=== PATIENT | female | born 1990 | race Caucasian/White ===

== ENCOUNTER 2017-02-14 14:54 | Emergency (ER) | payer MEDICAID ==
[2017-02-14 15:01] VITALS: BP 167/91; PULSE 83; O2SAT 100
--- NOTE | 2017-02-14 15:13 | ERPHSYRPT ---
- History of Present Illness Time Seen by Provider: 02/14/17 15:02 Source: patient Exam Limitations: no limitations Patient Subjective Stated Complaint: TOOTHACHE SINCE YESTERDAY Triage Nursing Assessment: AMBULATED TO ROOM PER SELF. SKIN W/D, COLOR NORMAL. HOLDING LEFT SIDE OF FACE, CRYING. HAS APPT WITH DENTIST IN [place] ON FRIDAY BUT STATES PAIN IS TOO BAD AND SHE CAN'T WAIT. Physician History: 26-year-old white female arrives with complaint of left maxillary dental pain symptoms going on since 2 weeks worse past several days. Patient states she thinks she has a wisdom tooth which is causing her pain. She states she has contacted her dentist today she has an appointment for Friday. Patient has no fevers no vomiting no other complaints. Past medical history is remarkable for asthma, conductivity heart defect. . Past surgical history negative Timing/Duration: week(s) (symptoms for 2 weeks worse the past 2 days) Severity: moderate Modifying Factors: Improves With: acetaminophen Associated Symptoms: No nausea, No vomiting, No abdominal pain, No shortness of breath, No heartburn, No diaphoresis, No cough, No chills, No chest pain, No fever, No headaches, No loss of appetite, No malaise, No rash, No syncope, No seizure, No weakness Allergies/Adverse Reactions: morphine Allergy (Severe, Verified 02/14/17 14:59) Hives naproxen Allergy (Mild, Verified 02/14/17 14:59) Hives codeine [Codeine] Allergy (Verified 02/14/17 14:59) Swelling loratadine [From Claritin] Allergy (Verified 02/14/17 14:59) Hx Tetanus, Diphtheria Vaccination/Date Given: No Hx Influenza Vaccination/Date Given: No Hx Pneumococcal Vaccination/Date Given: No - Review of Systems Constitutional: No Fever, No Chills Eyes: No Symptoms Ears, Nose, & Throat: Mouth Pain (pain left maxillary molar area), No Ear Pain, No Ear Discharge, No Hearing Changes, No Tinnitus, No Nose Pain, No Nose Congestion, No Nose Discharge, No Mouth Swelling, No Loose Teeth, No Throat Pain , No Throat Swelling, No Hoarse, No Painful Swallowing, No Snoring, No Stridor Respiratory: No Cough, No Dyspnea Cardiac: No Chest Pain, No Edema, No Syncope Abdominal/Gastrointestinal: No Abdominal Pain, No Nausea, No Vomiting, No Diarrhea Genitourinary Symptoms: No Dysuria Musculoskeletal: No Back Pain, No Neck Pain Skin: No Rash Neurological: No Dizziness, No Focal Weakness, No Sensory Changes Psychological: No Symptoms Endocrine: No Symptoms All Other Systems: Reviewed and Negative - Past Medical History Pertinent Past Medical History: Yes Neurological History: No Pertinent History ENT History: No Pertinent History Cardiac History: Other Respiratory History: Asthma Endocrine Medical History: No Pertinent History Musculoskeletal History: No Pertinent History GI Medical History: No Pertinent History History: No Pertinent History Psycho-Social History: No Pertinent History Female Reproductive Disorders: No Pertinent History Other Medical History: conductivity deficit of the heart? - Past Surgical History Past Surgical History: No Neuro Surgical History: No Pertinent History Cardiac: No Pertinent History Respiratory: No Pertinent History Gastrointestinal: No Pertinent History Genitourinary: No Pertinent History Musculoskeletal: No Pertinent History Female Surgical History: No Pertinent History - Social History Smoking Status: Never smoker Exposure to second hand smoke: Yes Drug Use: none Patient Lives Alone: No - Female History Hx Last Menstrual Period: 01/28/17 Hx Now: No - Nursing Vital Signs Nursing Vital Signs: Initial Vital Signs Temperature 98 F Temperature Source Oral Pulse Rate 83 Respiratory Rate 20 Blood Pressure [Right Arm] 167/91 Pain Intensity 10 - Physical Exam General Appearance: moderate distress Eye Exam: PERRL/EOMI, eyes nml inspection Ears, Nose, Throat Exam: normal ENT inspection, TMs normal, pharynx normal, moist mucous membranes, other (no obvious dental caries or abscessvital tender with palpation in th laterale left macillary region lateral to molar) Neck Exam: normal inspection, non-tender, supple, full range of motion Respiratory Exam: normal breath sounds, lungs clear, No respiratory distress Cardiovascular Exam: regular rate/rhythm, normal heart sounds, normal peripheral pulses Gastrointestinal/Abdomen Exam: soft, normal bowel sounds, No tenderness, No mass Back Exam: normal inspection, normal range of motion, No CVA tenderness, No vertebral tenderness Extremity Exam: normal inspection, normal range of motion, pelvis stable Neurologic Exam: alert, oriented x 3, cooperative, normal mood/affect, nml cerebellar function, nml station & gait, sensation nml, No motor deficits Skin Exam: normal color, warm, dry, No rash Lymphatic Exam: No adenopathy SpO2 Interpretation: normal (100%) SpO2: 100 Oxygen Delivery: Room Air - Course Nursing assessment & vital signs reviewed: Yes - Progress Progress: improved Progress Note: 02/14/17 15:11 This is a 26-year-old white female she arrives with complaint of dental pain left the maxillary region symptoms for 2 weeks she states has been worse for the past 2 days. Patient states she has contacted a dentist and has arranged for an appointment on Friday. She states she is unable to get into the dentist sooner Patient believes she might have a problem with a wisdom tooth. Patient does have a listed allergy to morphine Naprosyn, codeine and Lortadine Will go ahead and place patient on Hope for pain amoxicillin Patient is to place cold packs externally to area 24-48 hours to follow-up with her dentist Friday. On physical examination patient is tender on the left maxillary area adjacent to the left molar 02/14/17 15:17 Patient denies drug or alcohol use. Patient states she chewed tobacco in the past. Patient states she is not getting any pain medications from any other providers. Inspect is reviewed and no narcotics are evident on inspect report. - Departure Time of Disposition: 15:13 Departure Disposition: Home Clinical Impression: Pain, dental Condition: Good Critical Care Time: No Referrals: ANT AG [Primary Care Provider] - Additional Instructions: Return home. Cold packs to area 24-48 hours (externallly only) Avoid excessively hot or cold foods. Hope 5/325 #12 one orally every 4-6 hours as needed for pain. Amoxicillin 500 mg orally 3 times a day for 10 days. Follow-up with your dentist. Return for acute distress or for severe symptoms. Prescriptions: Amoxicillin 500 mg PO TID #30 capsule Hydrocodone/Acetaminophen [Hope 5-325 Tablet] 1 tab PO Q4-6HPRN PRN #12 tablet PRN Reason: Pain
== END 2017-02-14 15:29 | disposition home or self-care (01) ==
LOC: ED 14:54
DX: K08.89 Other specified disorders of teeth and supporting structures (principal)
CPT/HCPCS: 99281

== ENCOUNTER 2019-09-17 21:41 | Emergency (ER) | payer MEDICAID ==
[2019-09-17] MEDS ORDERED: ROCEPHIN 1 Gm-D5w 50 ml Bag** 1 G/50 ML IVPB IV STA (21:52)
[2019-09-17] MEDS ORDERED: Sodium Chloride 0.9% 1000 ML 1,000 ML IV STA (21:52)
[2019-09-17] MEDS ORDERED: Zithromax 500 MG/ 250 ML NaCl Premix 500 MG/250 ML IVPB IV STA (21:52)
[2019-09-17] MEDS ORDERED: DUONEB 0.5-3 MG/3 ml Neb IH ONE ×2 (21:52→22:03)
[2019-09-17] MEDS ORDERED: solu-MEDROL 125 MG IV ONE (21:52)
--- NOTE | 2019-09-17 22:01 | ERPHSYRPT ---
- History of Present Illness Time Seen by Provider: 09/17/19 21:56 Source: patient, family Exam Limitations: no limitations Patient Subjective Stated Complaint: pt to ER with complaints of chest pain and dizziness x 2 days. dizziness is worse today. diagnosed with pneumonia yesterday Triage Nursing Assessment: pt to ER with dizziness and chest pain with breathing. pt told she had pneumonia 2 days ago. Physician History: pt is 28 year old with diag viral pneumonia a few days ago but dizziness and malaise and short of breath ; no hx recent surg or hosp; no prior hx DVT diagnosis however had unexplained / unevaluated left LE swelling after pregancy last year no prior PE; no hormonal tx ; not tachy - but with concerning hx cannot PERC out for DVT risk; symptoms are suspicious and the WBC is normal and no reported fever and minimal cough - so will check D Dimer . did vomit; no abd pain Timing/Duration: day(s) Cough Quality/Degree: dry cough Possible Cause: no prior episodes Modifying Factors: Improves With: deep breath Associated Symptoms: cough, dizziness, lightheadedness Allergies/Adverse Reactions: morphine Allergy (Severe, Verified 09/17/19 21:56) Hives naproxen Allergy (Mild, Verified 09/17/19 21:56) Hives codeine [Codeine] Allergy (Verified 09/17/19 21:56) Swelling loratadine [From Claritin] Allergy (Verified 09/17/19 21:56) Hx Tetanus, Diphtheria Vaccination/Date Given: Yes Hx Influenza Vaccination/Date Given: No Hx Pneumococcal Vaccination/Date Given: No Immunizations Up to Date: Yes - Review of Systems Constitutional: Malaise, Weakness, No Fever, No Chills Eyes: No Symptoms Ears, Nose, & Throat: No Symptoms Respiratory: Cough, No Dyspnea Cardiac: Chest Pain, No Edema, No Syncope Abdominal/Gastrointestinal: Nausea, Vomiting, No Abdominal Pain, No Diarrhea Genitourinary Symptoms: No Dysuria Musculoskeletal: No Back Pain, No Neck Pain Skin: No Rash Neurological: Dizziness, No Focal Weakness, No Sensory Changes Psychological: No Symptoms Endocrine: No Symptoms Hematologic/Lymphatic: No Symptoms Immunological/Allergic: No Symptoms All Other Systems: Reviewed and Negative - Past Medical History Pertinent Past Medical History: No Neurological History: No Pertinent History ENT History: No Pertinent History Cardiac History: Other Respiratory History: Asthma Endocrine Medical History: No Pertinent History Musculoskeletal History: No Pertinent History GI Medical History: No Pertinent History History: No Pertinent History Psycho-Social History: No Pertinent History Female Reproductive Disorders: No Pertinent History Other Medical History: conductivity deficit of the heart? - Past Surgical History Past Surgical History: No Neuro Surgical History: No Pertinent History Cardiac: No Pertinent History Respiratory: No Pertinent History Gastrointestinal: No Pertinent History Genitourinary: No Pertinent History Musculoskeletal: No Pertinent History Female Surgical History: No Pertinent History - Social History Smoking Status: Never smoker Exposure to second hand smoke: Yes Drug Use: none Patient Lives Alone: No - Female History Hx Last Menstrual Period: 09/10/2019 Hx Now: No (having HCG) - Nursing Vital Signs Nursing Vital Signs: Initial Vital Signs Temperature 97.8 F 09/17/19 21:42 Pulse Rate 82 09/17/19 21:42 Respiratory Rate 18 09/17/19 21:42 Blood Pressure 118/73 09/17/19 21:42 O2 Sat by Pulse Oximetry 100 09/17/19 21:42 Pain Scale Pain Intensity 0 - Physical Exam General Appearance: no apparent distress, alert Eye Exam: PERRL/EOMI, eyes nml inspection Ears, Nose, Throat Exam: normal ENT inspection, TMs normal, pharynx normal, moist mucous membranes Neck Exam: normal inspection, non-tender, supple, full range of motion Respiratory Exam: normal breath sounds, lungs clear, airway intact, No respiratory distress Cardiovascular Exam: regular rate/rhythm, normal heart sounds Gastrointestinal/Abdomen Exam: soft, No tenderness Pelvic Exam: deferred Rectal Exam: deferred Back Exam: normal inspection, No CVA tenderness, No vertebral tenderness Extremity Exam: normal inspection, normal range of motion Neurologic Exam: alert, oriented x 3, cooperative, normal mood/affect, sensation nml, No motor deficits Skin Exam: normal color, warm, dry, No rash Lymphatic Exam: No adenopathy SpO2 Interpretation: normal SpO2: 100 O2 Delivery: Room Air - Course Nursing assessment & vital signs reviewed: Yes EKG Interpreted by Me: Sinus Rhythm, NORMAL AXIS, Non-specific ST Changes Ordered Tests: Active Orders 24 hr Category Date Time Status Suction Worker STAT Care 09/17/19 21:53 Active EKG-ER Only STAT Care 09/17/19 21:52 Active IV Insertion STAT Care 09/17/19 21:52 Active Pulse Oximetry (ED) STAT Care 09/17/19 21:52 Active CHEST 2 VIEWS (PA AND LAT) Stat Exams 09/17/19 21:52 Taken CHEST WITH CONTRAST [CT] Stat Exams 09/17/19 22:54 Ordered CBC W DIFF Stat Lab 09/17/19 21:55 Completed CMP Stat Lab 09/17/19 21:55 Completed D-DIMER QUANTITATION Stat Lab 09/17/19 21:55 Completed HCG QUALITATIVE,SERUM Stat Lab 09/17/19 21:55 Completed Lactic Acid Stat Lab 09/17/19 22:23 Completed TROPONIN Q3H Lab 09/17/19 21:55 Completed UA W/RFX UR CULTURE Stat Lab 09/17/19 22:35 Completed Peak Expiratory Flow Rate ONCE RT 09/17/19 21:52 Completed Respiratory Therapy Assessment DAILY RT 09/17/19 22:05 Completed Medication Summary Discontinued Medications Generic Name Dose Route Start Last Admin Trade Name Freq PRN Reason Stop Dose Admin Albuterol/Ipratropium 3 ml 09/17/19 21:52 09/17/19 22:07 Duoneb 0.5-3 Mg/3 Ml Neb IH 09/17/19 21:53 3 ml STAT ONE Administration Albuterol/Ipratropium Confirm 09/17/19 22:03 Duoneb 0.5-3 Mg/3 Ml Neb Administered 09/17/19 22:04 Dose 3 ml IH .STK-MED ONE Ceftriaxone Sodium/Dextrose 1 g in 50 mls @ 100 mls/hr 09/17/19 21:52 22:38 Rocephin 1 Gm-D5w 50 Ml Bag IV 09/17/19 22:21 Infused STAT STA Infusion Sodium Chloride 1,000 mls @ 999 mls/hr 09/17/19 21:52 09/17/19 22:13 Sodium Chloride 0.9% 1000 Ml IV 09/17/19 22:52 999 mls/hr .Q1H1M STA Administration Azithromycin 500 mg in 250 mls @ 250 mls/hr 09/17/19 21:52 09/17/19 22:21 Zithromax 500 Mg/ 250 Ml Nacl Premix IV 09/17/19 22:51 250 ml/hr STAT STA 250 mls/hr Administration Azithromycin Confirm 09/17/19 22:04 Zithromax 500 Mg/ 250 Ml Nacl Premix Administered 09/17/19 22:05 Dose 500 mg in 250 mls @ ud IV .STK-MED ONE Sodium Chloride Confirm 09/17/19 22:04 Sodium Chloride 0.9% 1000 Ml Administered 09/17/19 22:05 Dose 1,000 mls @ ud .ROUTE .STK-MED ONE Ceftriaxone Sodium/Dextrose Confirm 09/17/19 22:04 Rocephin 1 Gm-D5w 50 Ml Bag Administered 09/17/19 22:05 Dose 1 g in 50 mls @ ud IV .STK-MED ONE Methylprednisolone Sodium Succinate 125 mg 09/17/19 21:52 09/17/19 22:13 Solu-Medrol 125 Mg IV 09/17/19 21:53 125 mg STAT ONE Administration Methylprednisolone Sodium Succinate Confirm 09/17/19 22:04 Solu-Medrol 125 Mg Administered 09/17/19 22:05 Dose 125 mg .ROUTE .STK-MED ONE Prochlorperazine Edisylate 10 mg 09/17/19 22:17 09/17/19 22:19 Compazine 10 Mg/2 Ml IM 09/17/19 22:18 10 mg STAT ONE Administration Prochlorperazine Edisylate Confirm 09/17/19 22:18 Compazine 10 Mg/2 Ml Administered 09/17/19 22:19 Dose 10 mg .ROUTE .STK-MED ONE Lab/Rad Data: Laboratory Result Diagrams 09/17/19 21:55 09/17/19 21:55 Laboratory Results 09/17/19 09/17/19 09/17/19 Range/Units 22:35 22:23 22:00 WBC (4.0-10.5) K/mm3 RBC (4.1-5.4) M/mm3 Hgb (12.0-16.0) gm/dl Hct (35-47) % MCV (78-100) fl MCH (26-32) pg MCHC (32-36) g/dl RDW (11.5-14.0) % Plt Count (150-450) K/mm3 MPV (6-9.5) fl Gran % (36.0-66.0) % Eos # (Auto) (0-0.5) Absolute Lymphs (auto) (1.0-4.6) Absolute Monos (auto) (0.0-1.3) Lymphocytes % (24.0-44.0) % Monocytes % (0.0-12.0) % Eosinophils % (0.00-5.0) % Basophils % (0.0-0.4) % Absolute Granulocytes (1.4-6.9) Basophils # (0-0.4) D-Dimer (215-500) ng/mL Sodium (137-145) mmol/L Potassium (3.5-5.1) mmol/L Chloride (98-107) mmol/L Carbon Dioxide (22-30) mmol/L Anion Gap (5-15) MEQ/L BUN (7-17) mg/dL Creatinine (0.52-1.04) mg/dL Estimated GFR ML/MIN Glucose (74-106) mg/dL Lactic Acid 0.7 (0.4-2.0) Calcium (8.4-10.2) mg/dL Total Bilirubin (0.2-1.3) mg/dL AST (14-36) U/L ALT (0-35) U/L Alkaline Phosphatase (38-126) U/L Troponin I (0.000-0.034) ng/mL Serum Total Protein (6.3-8.2) g/dL Albumin (3.5-5.0) g/dL Serum , Qual (Negative) Urine Color LT.YELLOW (YELLOW) Urine Appearance CLEAR (CLEAR) Urine pH 7.0 (5-6) Ur Specific Garwood 1.002 (1.005-1.025) Urine Protein NEGATIVE (Negative) Urine Ketones NEGATIVE (NEGATIVE) Urine Blood NEGATIVE (0-5) Ramakrishna/ul Urine Nitrite NEGATIVE (NEGATIVE) Urine Bilirubin NEGATIVE (NEGATIVE) Urine Urobilinogen NEGATIVE (0-1) mg/dL Ur Leukocyte Esterase NEGATIVE (NEGATIVE) Urine WBC (Auto) NONE (0-5) /HPF Urine RBC (Auto) NONE (0-2) /HPF U Epithel Cells (Auto) RARE (FEW) /HPF Urine Bacteria (Auto) NONE (NEGATIVE) /HPF Urine Culture Reflexed NO (NO) Urine Glucose NEGATIVE (NEGATIVE) mg/dL Influenza Type A Ag NEGATIVE (NEGATIVE) Influenza Type B Ag NEGATIVE (NEGATIVE) RSV (PCR) NEGATIVE (Negative) Group A Strep Antibody NEGATIVE (NEGATIVE) 09/17/19 09/17/19 09/17/19 Range/Units 21:55 21:55 21:55 WBC (4.0-10.5) K/mm3 RBC (4.1-5.4) M/mm3 Hgb (12.0-16.0) gm/dl Hct (35-47) % MCV (78-100) fl MCH (26-32) pg MCHC (32-36) g/dl RDW (11.5-14.0) % Plt Count (150-450) K/mm3 MPV (6-9.5) fl Gran % (36.0-66.0) % Eos # (Auto) (0-0.5) Absolute Lymphs (auto) (1.0-4.6) Absolute Monos (auto) (0.0-1.3) Lymphocytes % (24.0-44.0) % Monocytes % (0.0-12.0) % Eosinophils % (0.00-5.0) % Basophils % (0.0-0.4) % Absolute Granulocytes (1.4-6.9) Basophils # (0-0.4) D-Dimer 1517 H* (215-500) ng/mL Sodium (137-145) mmol/L Potassium (3.5-5.1) mmol/L Chloride (98-107) mmol/L Carbon Dioxide (22-30) mmol/L Anion Gap (5-15) MEQ/L BUN (7-17) mg/dL Creatinine (0.52-1.04) mg/dL Estimated GFR ML/MIN Glucose (74-106) mg/dL Lactic Acid (0.4-2.0) Calcium (8.4-10.2) mg/dL Total Bilirubin (0.2-1.3) mg/dL AST (14-36) U/L ALT (0-35) U/L Alkaline Phosphatase (38-126) U/L Troponin I < 0.012 (0.000-0.034) ng/mL Serum Total Protein (6.3-8.2) g/dL Albumin (3.5-5.0) g/dL Serum , Qual NEGATIVE (Negative) Urine Color (YELLOW) Urine Appearance (CLEAR) Urine pH (5-6) Ur Specific Garwood (1.005-1.025) Urine Protein (Negative) Urine Ketones (NEGATIVE) Urine Blood (0-5) Ramakrishna/ul Urine Nitrite (NEGATIVE) Urine Bilirubin (NEGATIVE) Urine Urobilinogen (0-1) mg/dL Ur Leukocyte Esterase (NEGATIVE) Urine WBC (Auto) (0-5) /HPF Urine RBC (Auto) (0-2) /HPF U Epithel Cells (Auto) (FEW) /HPF Urine Bacteria (Auto) (NEGATIVE) /HPF Urine Culture Reflexed (NO) Urine Glucose (NEGATIVE) mg/dL Influenza Type A Ag (NEGATIVE) Influenza Type B Ag (NEGATIVE) RSV (PCR) (Negative) Group A Strep Antibody (NEGATIVE) 09/17/19 09/17/19 Range/Units 21:55 21:55 WBC 8.4 (4.0-10.5) K/mm3 RBC 3.80 L (4.1-5.4) M/mm3 Hgb 10.5 L (12.0-16.0) gm/dl Hct 32.6 L (35-47) % MCV 85.8 (78-100) fl MCH 27.6 (26-32) pg MCHC 32.2 (32-36) g/dl RDW 14.8 H (11.5-14.0) % Plt Count 298 (150-450) K/mm3 MPV 10.0 H (6-9.5) fl Gran % 60.7 (36.0-66.0) % Eos # (Auto) 0.17 (0-0.5) Absolute Lymphs (auto) 2.28 (1.0-4.6) Absolute Monos (auto) 0.82 (0.0-1.3) Lymphocytes % 27.3 (24.0-44.0) % Monocytes % 9.8 (0.0-12.0) % Eosinophils % 2.0 (0.00-5.0) % Basophils % 0.2 (0.0-0.4) % Absolute Granulocytes 5.07 (1.4-6.9) Basophils # 0.02 (0-0.4) D-Dimer (215-500) ng/mL Sodium 138 (137-145) mmol/L Potassium 3.6 (3.5-5.1) mmol/L Chloride 99 (98-107) mmol/L Carbon Dioxide 29 (22-30) mmol/L Anion Gap 13.6 (5-15) MEQ/L BUN 10 (7-17) mg/dL Creatinine 0.73 (0.52-1.04) mg/dL Estimated GFR > 60.0 ML/MIN Glucose 91 (74-106) mg/dL Lactic Acid (0.4-2.0) Calcium 9.0 (8.4-10.2) mg/dL Total Bilirubin 0.40 (0.2-1.3) mg/dL AST 27 (14-36) U/L ALT 22 (0-35) U/L Alkaline Phosphatase 74 (38-126) U/L Troponin I (0.000-0.034) ng/mL Serum Total Protein 8.0 (6.3-8.2) g/dL Albumin 4.0 (3.5-5.0) g/dL Serum , Qual (Negative) Urine Color (YELLOW) Urine Appearance (CLEAR) Urine pH (5-6) Ur Specific Garwood (1.005-1.025) Urine Protein (Negative) Urine Ketones (NEGATIVE) Urine Blood (0-5) Ramakrishna/ul Urine Nitrite (NEGATIVE) Urine Bilirubin (NEGATIVE) Urine Urobilinogen (0-1) mg/dL Ur Leukocyte Esterase (NEGATIVE) Urine WBC (Auto) (0-5) /HPF Urine RBC (Auto) (0-2) /HPF U Epithel Cells (Auto) (FEW) /HPF Urine Bacteria (Auto) (NEGATIVE) /HPF Urine Culture Reflexed (NO) Urine Glucose (NEGATIVE) mg/dL Influenza Type A Ag (NEGATIVE) Influenza Type B Ag (NEGATIVE) RSV (PCR) (Negative) Group A Strep Antibody (NEGATIVE) - Progress Progress: improved, re-examined Air Movement: good Progress Note: 09/17/19 23:29 pt felt much better after initial ab. pt wishes to decline CT PE protocol at this time after further discussion of risk /bebefit as well as any furhter w/u in ER including US for DVT and VQ scan. I have advised risk of from potential missed PE and she understands but still wishes to decline and has the capacity to make that choice , but does still wish treatment with outpt antibiotics. I have expained that could occur without further warning. I have advised if any furhter symptoms or not improving to return for further eval and tx or see or call 911 and she voices understanding. 09/17/19 23:40 heart score is 3 or less , 1 pt for atpical cp, 1 for fam hx/hx, 1 pt for ekg , and trop is neg - pt accepts this low risk and wishes DC with outpt f/u with PCP and has capacity to make that choice. 09/17/19 23:45 pt also declines furhter w/u in ER or admission for syncope and understands the limitations of workup performed adn that furhter eval is required with PCP and has the capacity to make that choice; Blood Culture(s) Obtained: No Antibiotics given: Yes Counseled pt/family regarding: lab results, diagnosis, need for follow-up, rad results - Departure Departure Disposition: Home Clinical Impression: Chest pain of unknown etiology, URI (upper respiratory infection), Atypical pneumonia, Syncope, Elevated d-dimer Condition: Good Critical Care Time: No Referrals: TIERNEY RAMIREZ, PICTURE COPYIST [Primary Care Provider] - Instructions: Atypical Chest Pain, Chest Pain (DC), Deep Vein Thrombosis ( Blood Clots in the Legs) (DC), Pulmonary Embolism (Blood Clot in the Lungs) (DC) , Atypical Pneumonia (Mycoplasma and Viral) (DC), Community-Acquired Pneumonia, Adult (DC), Syncope (Fainting) (DC) Additional Instructions: we did not determine a cause for your chest pain or dizziness although a viral infection may still be the cause. We have included some instructions about PE and DVT although these conditions you are at risk for but not diagnosed without further testing which you have declined; followup with your for further evaluation and treatment, to evaluate your progress and since additional conditions, potentially serious , may be evolving undetected. return meantime if any further symptoms of concern , fever, short of breath, vomiting, pain, more dizziness of other concerns. Prescriptions: Azithromycin 250 mg [Zithromax 250 MG TABLET] 250 mg PO ZPACK #6 tablet
[2019-09-17] MEDS ORDERED: Zithromax 500 MG/ 250 ML NaCl Premix 500 MG/250 ML IVPB IV ONE (22:04)
[2019-09-17] MEDS ORDERED: ROCEPHIN 1 Gm-D5w 50 ml Bag** 1 G/50 ML IVPB IV ONE (22:04)
[2019-09-17] MEDS ORDERED: Sodium Chloride 0.9% 1000 ML 1,000 ML ONE (22:04)
[2019-09-17] MEDS ORDERED: solu-MEDROL 125 MG ONE (22:04)
[2019-09-17 22:09] LABS: Absolute Neutrophil Ct (ANC) 5.07 (1.4-6.9); BASOPHIL % 0.2 % (0.0-0.4); Basophil (Absolute #) 0.02 (0-0.4); Eosinophil (Absolute #) 0.17 (0-0.5); Hematocrit 32.6 % (35-47); Hemoglobin 10.5 gm/dl (12.0-16.0); Lymphocyte (Absolute #) 2.28 (1.0-4.6); Lymphocytes % 27.3 % (24.0-44.0); Mean Cell Volume 85.8 fl (78-100); Mean Corpuscular Hemoglobin 27.6 pg (26-32); Mean Corpuscular Hgb Concent. 32.2 g/dl (32-36); Monocyte (Absolute #) 0.82 (0.0-1.3); Monocytes % 9.8 % (0.0-12.0); Neutrophil % 60.7 % (36.0-66.0); Platelet Count 298 K/mm3 (150-450); Red Cell Distribution Width 14.8 % (11.5-14.0); White Blood Count 8.4 K/mm3 (4.0-10.5)
[2019-09-17] MEDS ORDERED: Compazine 10 MG/2 ML IM ONE (22:17)
[2019-09-17] MEDS ORDERED: Compazine 10 MG/2 ML ONE (22:18)
[2019-09-17 22:20] LABS: ALKALINE PHOSPHATASE 74 U/L (38-126); ANION GAP 13.6 MEQ/L (5-15); BLOOD UREA NITROGEN 10 mg/dL (7-17); CHLORIDE 99 mmol/L (98-107); Carbon Dioxide 29 mmol/L (22-30); Creatinine 1 0.73 mg/dL (0.52-1.04); Glucose 91 mg/dL (74-106); Potassium 3.6 mmol/L (3.5-5.1); SGOT/AST 27 U/L (14-36); SGPT/ALT 22 U/L (0-35); SODIUM 138 mmol/L (137-145)
[2019-09-17 22:41] LABS: Group A Strep NEGATIVE (NEGATIVE); INFLUENZA A NEGATIVE (NEGATIVE); INFLUENZA B NEGATIVE (NEGATIVE); RESPIRATORY SYNCTIAL VIRUS NEGATIVE (Negative)
[2019-09-17 22:44] LABS: Appearance CLEAR (CLEAR); Bilirubin NEGATIVE (NEGATIVE); Blood NEGATIVE Ery/ul (0-5); Epithelial Cells RARE /HPF (FEW); Glucose NEGATIVE (NEGATIVE); Ketones NEGATIVE (NEGATIVE); Leukocyte Esterase NEGATIVE (NEGATIVE); Nitrite NEGATIVE (NEGATIVE); Protein,Urine Dip NEGATIVE (Negative); Specific Gravity 1.002 (1.005-1.025); Urobilinogen NEGATIVE mg/dL (0-1)
[2019-09-18 00:06] VITALS: BP 114/70; PULSE 80; O2SAT 95
--- NOTE | 2019-09-18 08:47 | XRAY ---
Indication: Fever and cough. Pneumonia. Comparison: September 15, 2019. PA/lateral chest again demonstrates normal heart, lungs, and bony thorax.
== END 2019-09-18 00:06 | disposition home or self-care (01) ==
LOC: ED 21:41
DX: R07.89 Other chest pain (principal); J06.9 Acute upper respiratory infection, unspecified; J18.9 Pneumonia, unspecified organism; R55 Syncope and collapse; R79.1 Abnormal coagulation profile; R42 Dizziness and giddiness; R11.2 Nausea with vomiting, unspecified
CPT/HCPCS: 36000; 36415; 71046; 80053; 81001; 81025; 83605; 84484; 85025; 85379; 87631; 87651; 93005; 93041; 94150; 94640; 94760; 96365; 96368; 96372; 96374; 99285; J0456; J0696; J2930; A9270-GY

== ENCOUNTER 2021-02-11 22:03 | Emergency (ER) | payer MEDICAID ==
--- NOTE | 2021-02-11 23:04 | ERPHSYRPT ---
- History of Present Illness Time Seen by Provider: 02/11/21 22:35 Source: patient Exam Limitations: no limitations Patient Subjective Stated Complaint: Patient states " I was horseback riding this evening and my horse is scared of creeks and went to jump over one and I we nt over the horse landing on my back and I have been having sharp intermittent pain in my left hip/groin that is horrible. It only hurts when i got to pull my leg up." Triage Nursing Assessment: Patient arrived to ED in W/C. Patient assisted per 1 to room and was 1 assist with transfer. Patient A/O times 4. Patient able to follow instructions without difficulty. Lungs clear bilateral A/P throughout. Patient denies SOB. Patient denies chest pain. Left hip with no rotation noted. Patient left hip with no shortening noted. Physician History: Patient is a 30-year-old female who was riding a horse the horse apparently tried to jump a small [place] and caused her to be thrown from the horse she had no loss of consciousness her only complaint of pain is in the left inguinal area and she suspects of broken hip. She landed on her back but like I said the pain is primary in the left inguinal area this occurred earlier this afternoon Occurred: this afternoon Injuries/Pain Location: pelvis Loss of Consciousness: no loss of consciousness Quality: stabbing Severity of Pain-Max: moderate Severity of Pain-Current: moderate Modifying Factors: Improves With: movement, other (Bearing on the left lower extremity) Associated Symptoms (Fall): extremity injury (Left hip) Allergies/Adverse Reactions: morphine Allergy (Severe, Verified 02/11/21 22:21) Hives naproxen Allergy (Mild, Verified 02/11/21 22:21) Hives codeine [Codeine] Allergy (Verified 02/11/21 22:21) Swelling loratadine [From Claritin] Allergy (Verified 02/11/21 22:21) Home Medications: No Reportable Medications [No Reported Medications] 02/11/21 [History] Hx Tetanus, Diphtheria Vaccination/Date Given: Yes Hx Influenza Vaccination/Date Given: Yes Hx Pneumococcal Vaccination/Date Given: No Immunizations Up to Date: Yes Travel Risk - International Travel Have you traveled outside of the country in past 3 weeks: No - Coronavirus Screening Are you exhibiting any of the following symptoms?: No Close contact with a COVID-19 positive Pt in past 14-21 Days: No - Vaccine Status Have you recieved a Covid-19 vaccination: No - Review of Systems Constitutional: No Fever, No Chills Eyes: No Symptoms Ears, Nose, & Throat: No Symptoms Respiratory: No Cough, No Dyspnea Cardiac: No Chest Pain, No Edema, No Syncope Abdominal/Gastrointestinal: No Abdominal Pain, No Nausea, No Vomiting, No Diarrhea Genitourinary Symptoms: No Dysuria Musculoskeletal: Joint Pain, No Back Pain, No Neck Pain Skin: No Rash Neurological: No Dizziness, No Focal Weakness, No Sensory Changes Psychological: No Symptoms Endocrine: No Symptoms All Other Systems: Reviewed and Negative - Past Medical History Pertinent Past Medical History: No Neurological History: No Pertinent History ENT History: No Pertinent History Cardiac History: Other Respiratory History: Asthma Endocrine Medical History: No Pertinent History Musculoskeletal History: No Pertinent History GI Medical History: No Pertinent History History: No Pertinent History Psycho-Social History: No Pertinent History Female Reproductive Disorders: No Pertinent History Other Medical History: Conductivity Deficit of the Heart. - Past Surgical History Past Surgical History: No Neuro Surgical History: No Pertinent History Cardiac: No Pertinent History Respiratory: No Pertinent History Gastrointestinal: No Pertinent History Genitourinary: No Pertinent History Musculoskeletal: No Pertinent History Female Surgical History: No Pertinent History - Social History Smoking Status: Never smoker Exposure to second hand smoke: No Drug Use: none Patient Lives Alone: No - Female History Hx Last Menstrual Period: 12/29/20 Hx Now: No - Nursing Vital Signs Nursing Vital Signs: Initial Vital Signs Temperature 99.1 F 02/11/21 22:24 Pulse Rate 86 02/11/21 22:24 Respiratory Rate 20 02/11/21 22:24 Blood Pressure 110/69 02/11/21 22:24 O2 Sat by Pulse Oximetry 98 02/11/21 22:24 Pain Scale Pain Intensity 5 - Lauro Coma Score Best Eye Response ([place]): (4) open spontaneously Best Verbal Response ([place]): (5) oriented Best Motor Response ([place]): (6) obeys commands [place] Total: 15 - Physical Exam General Appearance: mild distress, alert Head Injury: no evidence of injury Eye Exam: PERRL/EOMI ENT Exam: airway nml Neck Exam: normal inspection, No tenderness Respiratory/Chest Exam: normal breath sounds, No chest tenderness, No respiratory distress Cardiovascular Exam: normal heart sounds, regular rate/rhythm Gastrointestinal Exam: soft, No tenderness, No distention, No guarding, No ecchymosis Back Exam: normal inspection, No vertebral tenderness Extremity Exam: normal inspection, pelvis stable, limited range of motion (Lower extremity at the hip), bony point tenderness, hip tenderness, tenderness, No deformities Peripheral Pulses: carotid (R): 2+, carotid (L): 2+ Neurologic Exam: alert, oriented x 3, cooperative, sensation nml, No motor deficits Skin Exam: normal color, warm, dry SpO2 Interpretation: normal SpO2: 98 O2 Delivery: Room Air - Course Nursing assessment & vital signs reviewed: Yes - Radiology Exams Hip X-ray Interpretation: Interpreted by me, Negative Ordered Tests: Active Orders 24 hr Category Date Time Status Crutches STAT Care 02/11/21 23:34 Ordered HIP UNI (2V) INCL PEL IF DONE Stat Exams 02/11/21 22:22 Ordered HCG QUALITATIVE,SERUM Routine Lab 02/11/21 22:49 Completed Lab/Rad Data: Laboratory Results 02/11/21 Range/Units 22:49 Serum , Qual NEGATIVE (Negative) - Progress Progress: unchanged Progress Note: 02/11/21 23:39 Patient was informed that x-rays were negative offered pain medicine which she refused she will use Tylenol and Motrin she was also given instructions to use her crutches and no weightbearing on the left lower extremity she was also given information regarding the orthopedic clinic here at [place]. - Departure Departure Disposition: Home Clinical Impression: Strain of left inguinal muscle Condition: Stable Critical Care Time: No Instructions: Muscle Strain (DC)
[2021-02-11 23:58] VITALS: BP 113/66; PULSE 85; O2SAT 99
--- NOTE | 2021-02-12 21:13 | XRAY ---
Exam: Two-view left hip series including AP view of the pelvis from 02/11/2021. Comparison: None. Indication: 30-year-old female "thrown" from a horse. Findings: AP view of the pelvis and coned-down AP and frog-leg lateral views of the left hip were obtained. I see no fracture or dislocation of the pelvis. The sacroiliac joints and hip joint spaces appear symmetric. There is a tiny accessory bone adjacent to the superolateral margin of the left acetabulum. The symphysis pubis appears unremarkable. No fracture or dislocation of the left hip is seen. The visualized bowel gas pattern appears unremarkable. Several small apparent calcified phleboliths are seen within the lower left pelvis. Impression: 1. No evidence of fracture or dislocation is seen within the left hip or pelvis.
== END 2021-02-11 23:57 | disposition home or self-care (01) ==
LOC: ED 22:03
DX: S76.219A Strain of adductor muscle, fascia and tendon of unspecified thigh, initial encounter (principal)
CPT/HCPCS: 36415; 73502; 81025; 99284

== ENCOUNTER 2024-12-23 01:50 | Emergency (ER) | payer BC ==
[2024-12-23 02:04] VITALS: TEMP 98.1; O2SAT 100
--- NOTE | 2024-12-23 02:50 | ERPHSYRPT ---
- History of Present Illness Time Seen by Provider: 12/23/24 02:15 Source: patient, family Exam Limitations: no limitations Patient Subjective Stated Complaint: Pt. states, "LAST WEEK I WAS DIAGNOSED WITH FLU A, I THOUGHT I WAS FEELING BETTER BUT NOW MY COUGH IS WORSE, AND I'M HAVING TROUBLE BREATHING." Triage Nursing Assessment: PT. AMBULATED TO ROOM WITHOUT DIFFICULTY, SKIN P/W/D, RESP. EVEN UNLABORED, PRODUCTIVE COUGH NOTED, Physician History: This is an overweight 34-year-old white female patient who presents with worse cough and some associated shortness of breath with it. She was diagnosed with influenza A 9 days ago and was seen at an outpatient [facility] clinic and provided a prescription for Tamiflu which she did not take. In the last several days she has showed no improvement per her report and her cough is getting worse. She states her sputum and mucus have changed and that it is now thick. She has a sore throat. Her room air oxygen saturation levels 99 to 100%. She is not tachycardic. She does not have chest pain. Her concerns include possible pneumonia and strep pharyngitis. Timing/Duration: day(s) (9 days ago), worse (Symptoms are worse) Cough Quality/Degree: mild, productive cough, sputum (Thickened sputum) Possible Cause: no prior episodes Modifying Factors: Improves With: coughing, lying down (Disposition seems to draw the mucus into the back of her throat and she coughs worse) Associated Symptoms: cough, nasal congestion, nasal drainage, shortness of breath, sore throat, No chest pain/soreness Allergies/Adverse Reactions: morphine Allergy (Severe, Verified 02/11/21 22:21) Hives naproxen Allergy (Mild, Verified 02/11/21 22:21) Hives codeine [Codeine] Allergy (Verified 02/11/21 22:21) Swelling loratadine [From Claritin] Allergy (Verified 02/11/21 22:21) Hx Tetanus, Diphtheria Vaccination/Date Given: No Hx Influenza Vaccination/Date Given: No Hx Pneumococcal Vaccination/Date Given: No Immunizations Up to Date: No Travel Risk - International Travel Have you traveled outside of the country in past 3 weeks: No - Emerging Infectious Disease Are you exhibiting symptoms associated with any current EIDs: No - Review of Systems Constitutional: No Symptoms Eyes: No Symptoms Ears, Nose, & Throat: Nose Congestion, Nose Discharge Respiratory: Cough, Dyspnea (Only with coughing) Cardiac: No Chest Pain Abdominal/Gastrointestinal: No Symptoms Genitourinary Symptoms: No Symptoms Musculoskeletal: No Symptoms Skin: No Symptoms Neurological: No Symptoms Psychological: No Symptoms Endocrine: No Symptoms Hematologic/Lymphatic: No Symptoms Immunological/Allergic: No Symptoms All Other Systems: Reviewed and Negative - Past Medical History Pertinent Past Medical History: No Neurological History: No Pertinent History ENT History: No Pertinent History Cardiac History: Other Respiratory History: Asthma Endocrine Medical History: No Pertinent History Musculoskeletal History: No Pertinent History GI Medical History: No Pertinent History History: No Pertinent History Psycho-Social History: No Pertinent History Female Reproductive Disorders: No Pertinent History Other Medical History: Conductivity Deficit of the Heart. - Past Surgical History Past Surgical History: No Neuro Surgical History: No Pertinent History Cardiac: No Pertinent History Respiratory: No Pertinent History Gastrointestinal: No Pertinent History Genitourinary: No Pertinent History Musculoskeletal: No Pertinent History Female Surgical History: No Pertinent History - Female History Hx Last Menstrual Period: CURRENTLY Hx Now: No - Social History Smoking Status: Never smoker Exposure to second hand smoke: No Drug Use: none - Social Determinants of Health Will the patient participate in the screening: Declined to provide - Nursing Vital Signs Nursing Vital Signs: Initial Vital Signs Temperature 98.1 F 12/23/24 01:53 Pulse Rate 86 12/23/24 01:53 Respiratory Rate 16 12/23/24 01:53 Blood Pressure 137/78 12/23/24 01:53 O2 Sat by Pulse Oximetry 100 12/23/24 01:53 Pain Scale Pain Intensity 0 - Physical Exam General Appearance: no apparent distress, alert, anxiety, obese Eye Exam: PERRL/EOMI, eyes nml inspection Ears, Nose, Throat Exam: normal ENT inspection, moist mucous membranes Neck Exam: normal inspection, non-tender, supple, full range of motion Respiratory Exam: normal breath sounds, lungs clear, airway intact, No chest tenderness, No respiratory distress Cardiovascular Exam: regular rate/rhythm, normal heart sounds, normal peripheral pulses Gastrointestinal/Abdomen Exam: No tenderness Pelvic Exam: not done Rectal Exam: not done Back Exam: normal inspection, normal range of motion, No CVA tenderness, No vertebral tenderness Extremity Exam: normal inspection, normal range of motion, pelvis stable Neurologic Exam: alert, oriented x 3, cooperative, general technician II-XII nml as tested, nml cerebellar function, nml station & gait, sensation nml Skin Exam: normal color, warm, dry Lymphatic Exam: No adenopathy SpO2 Interpretation: normal SpO2: 100 O2 Delivery: Room Air - Course Nursing assessment & vital signs reviewed: Yes Ordered Tests: Medication Summary Discontinued Medications Generic Name Dose Route Start Last Admin Trade Name Rocio PRN Reason Stop Dose Admin Cefuroxime Axetil 500 mg 12/23/24 02:51 Cefuroxime Axetil 500 Mg Tablet PO 12/23/24 02:52 STAT ONE Prednisone 20 mg 12/23/24 02:51 Prednisone 20 Mg Tablet PO 12/23/24 02:52 STAT ONE - Progress Air Movement: good Progress Note: 12/23/24 02:48 My medical decision making on the assignment of low complexity to this medical issue today is based on review of the patient's past medical history, review of the patient's medication list, reviewed patient drug allergy list, history present illness and physical findings on examination. I offered the patient retesting of viral swabs, group A strep test, chest x-ray and lab workup. After discussing with the patient and her mother she has opted just to treat her symptoms at this time. I did tell her that even if the chest x-ray was clear and the strep test was negative, because her symptoms have been prolonged (9 days) I would still cover her for strep pharyngitis, upper respiratory infection and pneumonia. Differential diagnosis includes but is not limited to viral illness, strep pharyngitis, upper respiratory infection, pneumonia Blood Culture(s) Obtained: No Antibiotics given: Yes Counseled pt/family regarding: diagnosis, need for follow-up Medical Desision Making - Independent Historian Additional History obtained from: Mother - Risk of complications The pt has a mod risk of morbidity or mortality based on: Need for prescription drug management - Departure Departure Disposition: Home Clinical Impression: Cough, Upper respiratory infection Condition: Stable Critical Care Time: No Additional Instructions: Drink plenty of clear liquids. Take your steroids and antibiotics as prescribed. Call your primary care provider today, 12/23/2024, to make arranges for follow-up appointment for further evaluation management. Prescriptions: cefuroxime axetiL [Cefuroxime] 500 mg PO BID #14 tablet Prednisone 10 mg [Deltasone 10 mg] 10 mg PO TID #12 tablet
[2024-12-23] MEDS ORDERED: DELTASONE 20 MG ONE (02:58)
[2024-12-23] MEDS: DELTASONE 20 MG PO ONE (03:01)
[2024-12-23] MEDS: CEFTIN 500 MG PO ONE (03:03)
[2024-12-23] MEDS ORDERED: AMOXIL 500 MG ONE (03:14)
[2024-12-23] MEDS: AMOXIL 500 MG PO ONE (03:15)
[2024-12-23 03:40] VITALS: BP 118/64; PULSE 89; RESP 21
== END 2024-12-23 03:43 | disposition home or self-care (01) ==
LOC: ED 01:50
DX: J06.9 Acute upper respiratory infection, unspecified (principal); R05.1 Acute cough; J02.9 Acute pharyngitis, unspecified; Z79.899 Other long term (current) drug therapy
CPT/HCPCS: 99282; 99283; A9270-GY